=== PATIENT | male | born 1940 | race Caucasian/White ===

== ENCOUNTER 2016-12-06 13:27 | Emergency (ER) | payer BC ==
[2016-12-06] MEDS ORDERED: Oxymetazoline 0.05% NASAL SPR* 15 ML BTL RIGHT NARE ONE (19:12)
[2016-12-06] MEDS ORDERED: Lidocaine 1%* 5 ML VIAL INJ ONE (19:15)
[2016-12-06 19:25] VITALS: BP 146/67
[2016-12-06] MEDS ORDERED: Silver Nitrate/Potassium Nitr* 1 EA STICK TOPICAL ONE (19:28)
--- NOTE | 2016-12-06 23:12 | ED ---
Jaime Land Nikita, scribed for Saji Tinoco MD on 12/06/16 at 1857 . Throat Pain/Nasal Congestion - HPI Summary HPI Summary: This patient is a 75 year old M presenting to ED with a chief complaint of epistaxis in the R naris since last night after scratching it. Pt reports the blood was flowing from one side to the other. Now it is stopped but pt is afraid to take out the packing. The patient rates the pain 0/10 in severity. Symptoms aggravated by nothing. Symptoms alleviated by packing with toilet paper. Patient denies light-headedness. - History of Current Complaint Chief Complaint: EDEpistaxis Time Seen by Provider: 12/06/16 18:45 Hx Obtained From: Patient Onset/Duration: Sudden Onset - last night, Lasting Hours, Resolved Associated Signs And Symptoms: Negative: Negative - epistaxis in R naris; denies light-headedness PMH/Surg Hx/FS Hx/Imm Hx Endocrine/Hematology History: Denies: Hx Diabetes Cardiovascular History: Denies: Hx Coronary Artery Disease, Hx Hypertension Infectious Disease History: No Infectious Disease History: Denies: Traveled Outside the [place] in Last 30 Days - Family History Known Family History: Negative: Cardiac Disease, Hypertension, Diabetes - Social History Alcohol Use: Daily Substance Use Type: Reports: None Smoking Status (MU): Never Smoked Tobacco Review of Systems Positive: Epistaxis - R naris Neurological: Other - denies light-headedness All Other Systems Reviewed And Are Negative: Yes Physical Exam Triage Information Reviewed: Yes Vital Signs On Initial Exam: Initial Vitals Temp Pulse Resp BP Pulse Ox 98.2 F 64 20 145/69 97 12/06/16 13:41 12/06/16 13:41 12/06/16 13:41 12/06/16 13:41 12/06/16 13:41 Vital Signs Reviewed: Yes Appearance: Positive: Well-Appearing, No Pain Distress Skin: Positive: Warm, Skin Color Reflects Adequate Perfusion, Dry Head/Face: Positive: Normal Head/Face Inspection Eyes: Positive: EOMI, RICH ENT: Positive: Other - tissue paper with dried blood in R naris Neck: Positive: Supple, Nontender Respiratory/Lung Sounds: Positive: Clear to Auscultation, Breath Sounds Present Cardiovascular: Positive: RRR Abdomen Description: Positive: Nontender, Soft Bowel Sounds: Positive: Present Musculoskeletal: Positive: Normal, Strength/ROM Intact Neurological: Positive: Normal, Sensory/Motor Intact, Alert, Oriented to Person Place, Time Psychiatric: Positive: Affect/Mood Appropriate Diagnostics - Vital Signs Vital Signs Temp Pulse Resp BP Pulse Ox 12/06/16 17:32 98.4 F 68 15 147/75 99 12/06/16 15:35 97.7 F 60 18 149/80 99 12/06/16 13:41 98.2 F 64 20 145/69 97 - Laboratory Lab Statement: Any lab studies that have been ordered have been reviewed, and results considered in the medical decision making process. EENT Course/Dx - Course Assessment/Plan: This patient is a 75 year old M presenting to ED with a chief complaint of epistaxis in the R naris since last night after scratching it. Pt reports the blood was flowing from one side to the other. Now it is stopped but pt is afraid to take out the packing. The patient rates the pain 0/10 in severity. Symptoms aggravated by nothing. Symptoms alleviated by packing with toilet paper. Patient denies light-headedness. In the ED course, packing was removed from R naris. Medications reviewed. Pt will be discharged. Pt is agreeable with this plan. PATIENT'S PACKING REMOVED FROM RT NARE. THERE IS NO BLEEDING. NO CRITICAL CARE TIME. - Diagnoses Provider Diagnoses: Epistaxis Discharge - Discharge Plan Condition: Stable Disposition: HOME Patient Education Materials: Nosebleed (ED) Referrals: [facility] [place] PHYSICIAN REFERRAL [Outside] No Primary Care Phys,NOPCP [Primary Care Provider] - Additional Instructions: FOLLOW UP WITH YOUR DOCTOR. DO NOT PICK YOUR NOSE. USE VASELINE AND/OR SALINE NASAL SPRAY TO KEEP YOUR NOSTRILS MOIST. RETURN TO THE EMERGENCY DEPARTMENT FOR ANY WORSENING OF YOUR CONDITION OR QUESTIONS OR CONCERNS. The documentation as recorded by the Jaime fernandes Nikita accurately reflects the service I personally performed and the decisions made by me, Saji Tinoco MD.
== END 2016-12-06 21:23 | disposition home or self-care (01) ==
LOC: ED 13:27
DX: R04.0 Epistaxis (principal)
CPT/HCPCS: 99282; A9270-GY

== ENCOUNTER 2018-08-05 12:06 | Day surgery (SDC) | payer BC ==
[~2018-08-05 12:06] MED LIST: Acetaminophen TAB* 325 MG PO ONE; Buffered Lidocaine 1% SYRIN* 1 ML/SYRINGE INTRADERM ONE; Lactated Ringers 1000 ML Bag* 1,000 ML IV SCH
[2018-08-05] MEDS ORDERED: Acetaminophen TAB* 325 MG ONE (12:17)
[2018-08-05] MEDS ORDERED: Naloxone* 0.4 MG/ML 1 ML VIAL IV PRN (12:31)
[2018-08-05] MEDS ORDERED: Bupivacaine 0.25% EPI 200,000* 30 ML SDV ONE (12:31)
[2018-08-05] MEDS ORDERED: Bupivacaine 0.25% SDV* 30 ML ONE (12:31)
[2018-08-05] MEDS ORDERED: ceFAZolin 2 GM PREMIX in ORs 2 GM/50 ML BAG ONE (12:39)
[2018-08-05] MEDS ORDERED: Ondansetron INJ* 2 MG/ML VIAL ONE (12:59)
[2018-08-05] MEDS ORDERED: Dexamethasone IV* 4 MG/ML 1 ML (4 MG) ONE (12:59)
[2018-08-05 16:25] VITALS: BP 131/74
--- NOTE | 2018-08-05 19:23 | OP ---
DATE OF OPERATION: 08/05/18 - [facility] DATE OF : 40 SURGEON: Merrick Ford MD BIOMEDICAL SERVICE ENGINEER: CAN Acosta. An podiatry assistant was needed for the procedure to aid in positioning of the arm and retraction. ANESTHESIOLOGIST: Dr. Hutchinson. ANESTHESIA: General. PRE-OP DIAGNOSES: 1. 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 2. Right carpal tunnel syndrome. POST-OP DIAGNOSES: 1. 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 2. Right carpal tunnel syndrome. OPERATIVE PROCEDURE: 1. Right ulnar nerve decompression at the elbow with anterior transmuscular transposition. 2. Right ulnar nerve decompression at the wrist. 3. Right carpal tunnel release. INDICATIONS: Mr. Cho has the aforementioned nerve compression syndromes. It is quite severe. He has atrophy. He is losing function in the hand and strength. We talked about risks and benefits and he wanted to proceed with surgery. ESTIMATED BLOOD LOSS: 5 mL. COMPLICATIONS: None. FINDINGS: See above and below. DESCRIPTION OF PROCEDURE: Poncho was seen in the preoperative holding area. The correct site, side, and procedure were identified. We came back to the operating room where the arm was prepped and draped in the usual fashion and a time-out was performed. The arm was exsanguinated with the Esmarch and the tourniquet was inflated to 250 mmHg. I began by making a longitudinal incision in the proximal palm. This was brought across the ulnar side of the wrist in Clarence-type fashion. Dissection was carried down through the subcutaneous tissue. Self-retaining retractor was placed. I went ahead and released the transverse carpal ligament just off the radial aspect of the hook of the hamate. I went ahead and decompressed the entirety of the median nerve through the carpal tunnel up to the distal forearm. Once the transverse carpal ligament was released in its entirety and the distal antebrachial fascia had also been released, I turned my attention to the ulnar nerve. I came just proximal to Guyon's canal and I located the ulnar neurovascular bundle in the subcutaneous tissue. I went ahead and dissected it down through Guyon's canal releasing the roof of Guyon's canal. There were several traversing vascular perforators that I went ahead and cauterized with the bipolar. At this point, I had a good view of the entirety of the ulnar nerve. I went ahead and decompressed the motor branch by releasing the hypothenar fascia, the hypothenar musculature and then the subfascial layer. Once the motor branch was fully decompressed and the ulnar nerve had been decompressed proximally and distally, we irrigated out the wound and the skin was closed with 4-0 nylon suture. We then turned our attention to the elbow. I made a curvilinear incision over the posteromedial elbow. Dissection was carried down through the subcutaneous tissue taking care to try to identify and preserve the medial antebrachial cutaneous nerve. Full-thickness flap was raised off of the fascia overlying the ulnar nerve. I came just proximal to the cubital tunnel and then came distal and released the entirety of Luque's ligament. I released the FCU fascia. I split the 2 heads of the FCU and then I released the subfascial layer. The motor branches to the FCU muscle were preserved. I then came proximally. He had a little bit of unusual anatomy in that his medial epicondyle was much more proximal than the olecranon giving a lot of obliquity to Luque's ligament. I did go ahead and release the fascia overlying the nerve proximally all the way past the arcade of [place]. I released the medial intermuscular septum. Almost immediately, the nerve transposed itself and subluxated up over the medial epicondyle. I, therefore decided to do a transposition. I placed a vessel loop around the ulnar nerve. I performed a neurolysis and dissected it free. I then raised step cut fascial flaps in the flexor pronator fascia and released the muscular septum there. I then had a nice muscular bed to transpose the nerve on, so I went ahead and I did that and then I sewed the end of my fascial flaps together with 4-0 Ethibond suture end- to-end. This held the nerve in the transposed position. Again, the medial intermuscular septum had been excised, the leading edge of the FCU fascia had been excised, a portion of the FCU muscle had been excised. At this point, the transposition was done. Everything was looking very nice. We went ahead and obtained hemostasis with the Bovie. The subcutaneous tissue was reapproximated with 3-0 Vicryl suture. The skin was closed with 3-0 Monocryl and Steri-Strips. A 0.25% Marcaine was infiltrated all about the operative areas. The wounds were dressed with Xeroform, 4x4s, and ABD at the elbow and then a long arm splint was applied. Tourniquet was deflated and the hand pinked up immediately. He was taken to the recovery room in stable condition. [id number]/[facility] #: [id number] [facility]
== END 2018-08-05 15:55 | disposition home or self-care (01) ==
LOC: OREAST 12:06
PROVIDERS: ATTEND Orthopaedic Surgery Hand Surgery
DX: G56.21 Lesion of ulnar nerve, right upper limb (principal); G56.01 Carpal tunnel syndrome, right upper limb; Z86.718 Personal history of other venous thrombosis and embolism; Z79.82 Long term (current) use of aspirin
CPT/HCPCS: A9270-GY; J0690; J1100; J2405; J3490